=== PATIENT | female | born 1940 | race Caucasian/White ===

== ENCOUNTER 2018-12-28 07:08 | Emergency (ER) | payer MEDICARE, OTHER ==
--- NOTE | 2018-12-28 07:42 | EDM.PDOC ---
ED HPI GENERAL MEDICAL PROBLEM - General Chief Complaint: Cardiovascular Problem Stated Complaint: CHEST PAIN Time Seen by Provider: 12/28/18 07:10 Source of Information: Reports: Patient, Senior Living Records History Limitations: Reports: Altered Mental Status (memory impairment) - History of Present Illness INITIAL COMMENTS - FREE TEXT/NARRATIVE: Priscilla comes into [facility] ED from [facility] with an episode of vague chest pain and unresponsiveness. She has memory impairment, and could not describe the features of her chest pain, but appears to have been mild and brief. She returned to baseline within several minutes of the episode without apparent sequelae. She was transported by EMS and has remained stable. - Related Data Allergies Allergy/AdvReac Type Severity Reaction Status Date / Time No Known Allergies Allergy Verified 12/28/18 07:31 Home Meds: Home Meds ALPRAZolam [Xanax] 0.5 mg PO TID PRN 12/28/18 [History] Acetaminophen 650 mg PO ASDIRECTED PRN 12/28/18 [History] Acetaminophen [Tylenol] 650 mg PO DAILY 12/28/18 [History] Cholecalciferol (Vitamin D3) [Vitamin D] 1,000 unit PO DAILY 12/28/18 [History] Cyanocobalamin (Vitamin B-12) [Vitamin B-12] 1,000 mcg PO DAILY 12/28/18 [ History] Donepezil [Aricept] 10 mg PO DAILY 12/28/18 [History] Ferrous Sulfate 325 mg PO DAILY 12/28/18 [History] Fluticasone Furoate [Arnuity Ellipta] 50 mcg IH DAILY 12/28/18 [History] Levothyroxine [Synthroid] 50 mcg PO ACBREAKFAST 12/28/18 [History] Lisinopril [Zestril] 2.5 mg PO DAILY 12/28/18 [History] Loratadine 10 mg PO DAILY 12/28/18 [History] Memantine HCl [Namenda] 5 mg PO DAILY 12/28/18 [History] Mirtazapine [Remeron] 15 mg PO DAILY 12/28/18 [History] Multivitamin [Multivitamins] 1 each PO DAILY 12/28/18 [History] Omeprazole 40 mg PO DAILY 12/28/18 [History] QUEtiapine [SEROquel] 25 mg PO ASDIRECTED PRN 12/28/18 [History] QUEtiapine [SEROquel] 50 mg PO DAILY 12/28/18 [History] risperiDONE [Risperidone] 0.5 mg PO DAILY 12/28/18 [History] traMADol [Ultram] 50 mg PO Q6H PRN 12/28/18 [History] Past Medical History Cardiovascular History: Reports: Hypertension Gastrointestinal History: Reports: GERD Psychiatric History: Reports: Dementia Hematologic History: Reports: B12 Deficiency ED ROS GENERAL - Review of Systems Review Of Systems: Unable To Obtain ED EXAM, GENERAL - Physical Exam Exam: See Below Exam Limited By: Altered Mental Status (dementia) General Appearance: Alert, WD/WN, No Apparent Distress, Thin Eye Exam: Bilateral Eye: EOMI, Normal Inspection, PERRL Ears: Normal External Exam, Hearing Grossly Normal Nose: Normal Inspection Throat/Mouth: Normal Inspection, Normal Lips, Normal Oropharynx, Normal Voice, No Airway Compromise Head: Normocephalic Neck: Normal Inspection, Supple, Non-Tender, Full Range of Motion Respiratory/Chest: No Respiratory Distress, Lungs Clear, Normal Breath Sounds, No Accessory Muscle Use, Chest Non-Tender Cardiovascular: Normal Peripheral Pulses, Regular Rate, Rhythm, No JVD, No Murmur GI/Abdominal: Soft, Non-Tender, No Organomegaly, No Distention, No Mass, Pelvis Stable (Female) Exam: Deferred Rectal (Female) Exam: Deferred Back Exam: Normal Inspection, Full Range of Motion Extremities: Normal Inspection, Normal Range of Motion, Non-Tender, No Pedal Edema Neurological: Alert, CN II-XII Intact, No Motor/Sensory Deficits Psychiatric: Flat Affect Skin Exam: Warm, Dry, Intact, Normal Color, No Rash Lymphatic: No Adenopathy Course - Vital Signs Text/Narrative:: Priscilla remained stable during assessment. Screening labs and ekg were baseline. Last Recorded V/S: Last Vital Signs Temp 36.7 C 12/28/18 08:50 Pulse 68 12/28/18 08:50 Resp 18 12/28/18 08:50 BP 169/75 H 12/28/18 08:50 Pulse Ox 99 12/28/18 08:50 - Orders/Labs/Meds Orders: Active Orders 24 hr Category Date Time Status EKG Documentation Completion [RC] ASDIRECTED Care 12/28/18 07:54 Active EKG 12 Lead [EK] Routine Ther 12/28/18 07:54 Ordered Labs: Laboratory Tests 12/28/18 12/28/18 12/28/18 Range/Units 07:58 07:58 07:58 WBC 6.5 (4.5-12.0) X10-3/uL RBC 3.94 (3.23-5.20) x10(6)uL Hgb 11.8 (11.5-15.5) g/dL Hct 35.9 (30.0-51.3) % MCV 91.0 (80-96) fL MCH 30.0 (27.7-33.6) pg MCHC 32.9 (32.2-35.4) g/dL RDW 13.9 (11.5-15.5) % Plt Count 265 (125-369) X10(3)uL MPV 8.1 (7.4-10.4) fL Neut % (Auto) 70.5 (46-82) % Lymph % (Auto) 17.1 (13-37) % [place] % (Auto) 7.9 (4-12) % Eos % (Auto) 4 (1.0-5.0) % Baso % (Auto) 1 (0-2) % Neut # (Auto) 4.7 (1.6-8.3) # Lymph # (Auto) 1.1 (0.6-5.0) # [place] # (Auto) 0.5 (0.0-1.3) # Eos # (Auto) 0.2 (0.0-0.8) # Baso # (Auto) 0.0 (0.0-0.2) # Sodium 144 (135-145) mmol/L Potassium 4.3 (3.5-5.3) mmol/L Chloride 106 (100-110) mmol/L Carbon Dioxide 29 (21-32) mmol/L BUN 20 H (7-18) mg/dL Creatinine 1.1 H (0.55-1.02) mg/dL Est Cr Clr Drug Dosing TNP Estimated GFR (MDRD) 48 L (>60) BUN/Creatinine Ratio 18.2 (9-20) Glucose 98 (80-116) mg/dL Calcium 9.2 (8.6-10.2) mg/dL Troponin I < 0.017 L (<0.017-0.056) ng/mL Departure - Departure Time of Disposition: 08:30 Disposition: Home, Self-Care 01 Condition: Good Clinical Impression: Near syncope Instructions: Near-Syncope, [id number] Referrals: Corona Hernández MD [Primary Care Provider] - Forms: ED Department Discharge Additional Instructions: follow up with your primary care as needed no changes of home medications - Problem List & Annotations (1) Near syncope SNOMED Code(s): 840354762 Code(s): R55 - SYNCOPE AND COLLAPSE Status: Acute Annotation/Comment:: Activity as tolerated, continue maintenance meds. - Problem List Review Problem List Initiated/Reviewed/Updated: Yes - My Orders Last 24 Hours: My Active Orders 12/28/18 07:54 EKG Documentation Completion [RC] ASDIRECTED EKG 12 Lead [EK] Routine - Assessment/Plan Last 24 Hours: My Active Orders 12/28/18 07:54 EKG Documentation Completion [RC] ASDIRECTED EKG 12 Lead [EK] Routine Plan: Follow up with PCP.
== END 2018-12-28 08:50 | disposition home or self-care (01) ==
LOC: FB.ED 07:08
DX: R55 Syncope and collapse (principal); I10 Essential (primary) hypertension; K21.9 Gastro-esophageal reflux disease without esophagitis; Z79.899 Other long term (current) drug therapy
CPT/HCPCS: 36415; 80048; 84484; 85025; 93005; 93010; 99284; 99284-25

== ENCOUNTER 2019-01-04 15:00 | Emergency (ER) | payer MEDICARE, OTHER ==
--- NOTE | 2019-01-04 15:46 | EDM.PDOC ---
ED HPI GENERAL MEDICAL PROBLEM - General Stated Complaint: LETHARGIC, NO APPETITE Time Seen by Provider: 01/04/19 15:00 Source of Information: Reports: Patient, Family History Limitations: Reports: Altered Mental Status - History of Present Illness INITIAL COMMENTS - FREE TEXT/NARRATIVE: 78 y.o.w.f with a H/o HTN, came to the ed because pt was not able to walk. Pt was found next to her bed at 2 am. Pt was seen in the ED last week for a syncopal episode. Pt is too week to ambulate, follows commands well. [id number] No N/V/D BP 169/89 RR 16 Pulse ox 100% on RA Temp 36.8 Pulse 78 Onset Date: 01/04/19 Onset Time: 02:00 Duration: Hour(s):, Intermittent Location: Reports: Head Quality: Reports: Dull Severity: Moderate Improves with: Reports: Rest Worsens with: Reports: Movement Context: Reports: Trauma (VS caused by HTN) Associated Symptoms: Reports: No Other Symptoms - Related Data Allergies Allergy/AdvReac Type Severity Reaction Status Date / Time penicillin G Allergy Other Verified 01/04/19 18:16 Home Meds: Home Meds ALPRAZolam [Xanax] 0.5 mg PO TID PRN 12/28/18 [History] Acetaminophen 650 mg PO ASDIRECTED PRN 12/28/18 [History] Acetaminophen [Tylenol] 650 mg PO DAILY 12/28/18 [History] Cholecalciferol (Vitamin D3) [Vitamin D] 1,000 unit PO DAILY 12/28/18 [History] Cyanocobalamin (Vitamin B-12) [Vitamin B-12] 1,000 mcg PO DAILY 12/28/18 [ History] Donepezil [Aricept] 10 mg PO DAILY 12/28/18 [History] Ferrous Sulfate 325 mg PO BID 12/28/18 [History] Fluticasone Furoate [Arnuity Ellipta] 50 mcg IH DAILY 12/28/18 [History] Levothyroxine [Synthroid] 50 mcg PO ACBREAKFAST 12/28/18 [History] Lisinopril [Zestril] 2.5 mg PO DAILY 12/28/18 [History] Loratadine 10 mg PO DAILY 12/28/18 [History] Memantine HCl [Namenda] 5 mg PO BID 12/28/18 [History] Mirtazapine [Remeron] 30 mg PO BEDTIME 12/28/18 [History] Multivitamin [Multivitamins] 1 each PO DAILY 12/28/18 [History] Omeprazole 40 mg PO DAILY 12/28/18 [History] QUEtiapine [SEROquel] 25 mg PO ASDIRECTED PRN 12/28/18 [History] QUEtiapine [SEROquel] 50 mg PO DAILY 12/28/18 [History] risperiDONE [Risperidone] 0.5 mg PO DAILY 12/28/18 [History] traMADol [Ultram] 50 mg PO Q6H PRN 12/28/18 [History] Pramoxine HCl [Anti-Itch] 222 ml TP DAILY 01/04/19 [History] Past Medical History Cardiovascular History: Reports: Hypertension Gastrointestinal History: Reports: GERD Psychiatric History: Reports: Dementia Hematologic History: Reports: B12 Deficiency Social & Family History - Family History Family Medical History: Noncontributory ED ROS GENERAL - Review of Systems Review Of Systems: Unable To Obtain ED EXAM, NEURO - Physical Exam Exam: See Below Exam Limited By: Physical Impairment (weakness) General Appearance: Lethargic, Mild Distress, Thin Eye Exam: Bilateral Eye: Normal Inspection Ears: Normal External Exam Nose: Normal Inspection Throat/Mouth: Normal Inspection, Normal Lips, Normal Voice, No Airway Compromise Head Exam: Atraumatic, Normocephalic Neck: Normal Inspection, Supple, Non-Tender, Full Range of Motion Respiratory/Chest: No Respiratory Distress Cardiovascular: Normal Peripheral Pulses, Regular Rate, Rhythm, No Edema GI/Abdominal: Normal Bowel Sounds, Soft, Non-Tender (Female) Exam: Deferred Rectal (Female) Exam: Deferred Neurological: Alert, Normal Mood/Affect, CN II-XII Intact Back Exam: Normal Inspection, Full Range of Motion Extremities: Normal Inspection, Normal Range of Motion, Non-Tender, No Pedal Edema Psychiatric: Normal Affect, Normal Mood Skin Exam: Warm, Dry, Intact, Normal Color, No Rash EKG INTERPRETATION EKG Date: 01/04/19 Time: 16:20 Rhythm: NSR Rate (Beats/Min): 78 [place]: LAD-Left [place] Deviation P-Wave: Present QRS: Normal ST-T: Normal QT: Normal Comparison: NA - No Prior EKG Course - Vital Signs Text/Narrative:: 78 y.o.w.f with a H/o HTN, came to the ed because pt was not able to walk. Pt was found next to her bed at 2 am. Pt was seen in the ED last week for a syncopal episode. Pt is too week to ambulate, follows commands well. [id number] No N/V/D BP 169/89 RR 16 Pulse ox 100% on RA Temp 36.8 Pulse 78 PE: Thin 78 y.io.w.f with Parenchymal bleed. Does not take ASA does not take Coumadin. Imaging: Parenchymal bleed, Labs: CBC Nl BUN 21 Cr 1.2 GFR 45 CK 234 Impression: Parenchymal bleed, HTN Tx: Labetolol. 4.35 pm Consultation: Dr. Cohn, Neurosurgeon, [facility]: Bleed is caused by HTN, needs to be refereed to a vascular surgeon 5.22 pm Consultation: Dr. Howard, Vascular surgeon, [facility]: Accepted the pt for further care. Transfer to ED [place] to get an angio CT with contrast. Reexam; BP improved, pt was doing better. Plan: Transfer to [place] ED Last Recorded V/S: Last Vital Signs Temp 36.8 C 01/04/19 18:26 Pulse 75 01/04/19 18:26 Resp 17 01/04/19 18:26 BP 149/72 H 01/04/19 18:26 Pulse Ox 100 01/04/19 17:29 - Orders/Labs/Meds Labs: Laboratory Tests 01/04/19 01/04/19 01/04/19 Range/Units 16:00 16:00 16:00 WBC 5.0 (4.5-12.0) X10-3/uL RBC 4.23 (3.23-5.20) x10(6)uL Hgb 12.4 (11.5-15.5) g/dL Hct 38.1 (30.0-51.3) % MCV 90.0 (80-96) fL MCH 29.4 (27.7-33.6) pg MCHC 32.6 (32.2-35.4) g/dL RDW 14.0 (11.5-15.5) % Plt Count 265 (125-369) X10(3)uL MPV 8.0 (7.4-10.4) fL Neut % (Auto) 68.7 (46-82) % Lymph % (Auto) 14.7 (13-37) % [place] % (Auto) 15.9 H (4-12) % Eos % (Auto) 0 L (1.0-5.0) % Baso % (Auto) 0 (0-2) % Neut # (Auto) 3.5 (1.6-8.3) # Lymph # (Auto) 0.7 (0.6-5.0) # [place] # (Auto) 0.8 (0.0-1.3) # Eos # (Auto) 0.0 (0.0-0.8) # Baso # (Auto) 0.0 (0.0-0.2) # PT 9.9 (8.7-11.1) INR 1.02 (0.89-1.13) Sodium 139 (135-145) mmol/L Potassium 4.0 (3.5-5.3) mmol/L Chloride 102 (100-110) mmol/L Carbon Dioxide 30 (21-32) mmol/L BUN 21 H (7-18) mg/dL Creatinine 1.2 H (0.55-1.02) mg/dL Est Cr Clr Drug Dosing TNP Estimated GFR (MDRD) 43 L (>60) BUN/Creatinine Ratio 17.5 (9-20) Glucose 103 (80-116) mg/dL Calcium 9.5 (8.6-10.2) mg/dL Magnesium 1.6 L (1.8-2.5) mg/dL Creatine Kinase 274 H* (60-160) IU/L Troponin I (<0.017-0.056) ng/mL 01/04/19 Range/Units 16:00 WBC (4.5-12.0) X10-3/uL RBC (3.23-5.20) x10(6)uL Hgb (11.5-15.5) g/dL Hct (30.0-51.3) % MCV (80-96) fL MCH (27.7-33.6) pg MCHC (32.2-35.4) g/dL RDW (11.5-15.5) % Plt Count (125-369) X10(3)uL MPV (7.4-10.4) fL Neut % (Auto) (46-82) % Lymph % (Auto) (13-37) % [place] % (Auto) (4-12) % Eos % (Auto) (1.0-5.0) % Baso % (Auto) (0-2) % Neut # (Auto) (1.6-8.3) # Lymph # (Auto) (0.6-5.0) # [place] # (Auto) (0.0-1.3) # Eos # (Auto) (0.0-0.8) # Baso # (Auto) (0.0-0.2) # PT (8.7-11.1) INR (0.89-1.13) Sodium (135-145) mmol/L Potassium (3.5-5.3) mmol/L Chloride (100-110) mmol/L Carbon Dioxide (21-32) mmol/L BUN (7-18) mg/dL Creatinine (0.55-1.02) mg/dL Est Cr Clr Drug Dosing Estimated GFR (MDRD) (>60) BUN/Creatinine Ratio (9-20) Glucose (80-116) mg/dL Calcium (8.6-10.2) mg/dL Magnesium (1.8-2.5) mg/dL Creatine Kinase (60-160) IU/L Troponin I < 0.017 L (<0.017-0.056) ng/mL Meds: Medications Discontinued Medications Generic Name Dose Route Start Last Admin Trade Name Freq PRN Reason Stop Dose Admin Labetalol HCl 10 mg 01/04/19 17:39 01/04/19 17:44 Normodyne IVPUSH 01/04/19 17:40 10 mg ONETIME ONE Administration Protocol Labetalol HCl 10 mg 01/04/19 18:14 01/04/19 18:24 Normodyne IVPUSH 01/04/19 18:15 Not Given ONETIME ONE Protocol Labetalol HCl 5 mg 01/04/19 18:22 01/04/19 18:28 Normodyne IVPUSH 01/04/19 18:23 5 mg ONETIME ONE Administration Protocol Departure - Departure Time of Disposition: 19:00 Disposition: DC/Tfer to Acute Hospital 02 Condition: Fair Clinical Impression: Brain bleed - Discharge Information Referrals: Kera Mary PATIENT SAFETY TECH [Primary Care Provider] -
[2019-01-04] MEDS ORDERED: Labetalol 20 MG/4 ML Syringe IVPUSH ONE ×3 (17:39→18:22)
--- NOTE | 2019-01-07 09:35 | CT ---
INDICATION: Found on the floor, apparent trauma. CT HEAD WITHOUT CONTRAST: Spiral axial imaging of the brain was obtained with sagittal and coronal reconstructions, 01/04/19 - no comparisons. Total exam DLP = 1,244.99 mGy-cm. The visualized mastoid air cells were well-aerated. There is a retention cyst in a right anterior ethmoidal air cell with some thickening of the lining of that air cell. There also appears to be an opacified ethmoidal air cell more anteriorly. The presence of some thickening of the lining of a left frontal air cell is noted. The paranasal sinuses were otherwise unremarkable. No cranial fracture site was identified. There is no gross shift of midline structures. However, there is impingement and shift of the right-sided occipital horn of the right lateral ventricle, due to a 2 x 4.6 cm area of intraparenchymal hemorrhage in the right occipital lobe , surrounded by low density, compatible with edema. Findings may represent a hemorrhagic infarct. A neoplastic process is felt to be much less likely with this appearance but should be correlated clinically. Followup is recommended, either repeat CT or MRI. Decreased density is also noted in the white matter, compatible with moderate microvascular disease, and is most prominent in the left occipital white matter. The ventricles are prominent, compatible with central atrophy. Cortical sulci are only minimally prominent but suggest a mild degree of cortical atrophy. Calcifications are noted in the right vertebral and internal carotid arteries. No other abnormal areas of density were identified. IMPRESSION: 1. 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 Surrounding edema is present. 2. Moderate microvascular disease type changes in the white matter. 3. Mostly central atrophy. Report was called to Dr. Sheppard at approximately 1630 hours on 01/04/19. [facility]
--- NOTE | 2019-01-07 09:43 | CT ---
INDICATION: Found on the floor, apparent trauma. CT CERVICAL SPINE WITHOUT CONTRAST: Spiral 2.5 mm axial sections were obtained through the cervical spine without contrast, with sagittal and coronal reconstructions, 01/04/19. Total exam DLP = 157.14 mGy-cm. Osteoarthritic changes are noted throughout the C3 through T1 levels of the spine with degenerative disk disease suggested minimally at C3-4 and more prominently at C4-5 through C7-T1. Subchondral cystic changes and hypertrophic changes are present off vertebral bodies. There is some narrowing of neural foramina noted, mostly in the lower levels. Somewhat diminished bone density raises question of osteoporosis but should be correlated clinically. Minimal retrolisthesis is suggested at C3-4 and C4-5. Prevertebral space appeared to be normal. The odontoid was intact. The atlas was also intact. Lung included on the study showed no acute abnormality, although there was evidence of central lobular emphysema. IMPRESSION: 1. No acute fracture or dislocation cervical spine. 2. 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 3. Central lobular emphysema. Report was called to Dr. Sheppard at approximately 1630 hours on 01/04/19. [facility]
== END 2019-01-04 18:38 ==
LOC: FB.ED 15:00
DX: I61.8 Other nontraumatic intracerebral hemorrhage (principal); I10 Essential (primary) hypertension; K21.9 Gastro-esophageal reflux disease without esophagitis; Z88.1 Allergy status to other antibiotic agents; Z79.899 Other long term (current) drug therapy
CPT/HCPCS: 36415; 70450; 72125; 80048; 82550; 83735; 84484; 85025; 85610; 93005; 96374; 96376; 99285; J3490